=== PATIENT | female | born 1975 | race Caucasian/White ===

== ENCOUNTER 2019-11-15 15:59 | Emergency (ER) | payer OTHER, SELFPAY ==
[2019-11-15 16:06] VITALS: BP 121/74; PULSE 92; RESP 20; TEMP 36.8; O2SAT 100
--- NOTE | 2019-11-15 16:06 | ED.WOUNDLAC ---
HPI - Wound/Laceration General Chief Complaint: Wound/Laceration Stated Complaint: left thumb cut Time Seen by Provider: 11/15/19 16:06 Source: patient and RN notes reviewed History of Present Illness HPI narrative: Patient is a 43-year-old female that presents the urgent care with complaints of a laceration to the left thumb. Patient states it occurred about 12 PM this afternoon while she was grilling. Patient states that she fell off a small stool onto her buttocks and believes she cut her thumb on a light bulb . Patient states that her buttocks immediately bruised but she is feeling better now and is able to ambulate without difficulty. Patient has not done anything for her pain and finished all of her grilling prior to arrival . Patient is UTD on tetanus. No other acute complaints. No acute distress noted. Patient denies hitting her head or loss of consciousness. Patient read the plan of care. Related Data Home Medications Medication Instructions Recorded Confirmed atenolol 50 mg PO DAILY 11/15/19 11/15/19 atorvastatin 80 mg PO DAILY 11/15/19 11/15/19 citalopram 40 mg PO DAILY 11/15/19 11/15/19 metformin 500 mg PO DIRECTED 11/15/19 11/15/19 norethindrone-e.estradiol-iron 1 tablet PO DAILY 11/15/19 11/15/19 [Microgestin Fe 1.5/30 (28)] thyroid (pork) [[place] Thyroid] 120 mg PO DAILY 11/15/19 11/15/19 Allergies Allergy/AdvReac Type Severity Reaction Status Date / Time No Known Allergies Allergy Unverified 11/15/19 16:08 Review of Systems Review of Systems: Narrative: CONSTITUTIONAL: Denies fever, chills, or sweats. EYES: Denies visual changes, redness, or discharge. ENT: Denies rhinorrhea, congestion, sore throat, or otalgia. CARDIOVASCULAR: Denies chest pain, palpitations, or edema. RESPIRATORY: Denies cough or dyspnea. GASTROINTESTINAL: Denies abdominal pain, nausea, vomiting, or diarrhea. GENITOURINARY: Denies dysuria or hematuria. SKIN: Reports of a laceration to the left thumb. MUSCULOSKELETAL: Denies back pain, joint pain, or myalgia. NEUROLOGIC: Denies headache, numbness, or weakness. All other systems reviewed are negative, except as documented in HPI. PMFSH Comments At the time of my signature, I reviewed and agree with the nursing past medical, surgical, social, and family history. There is no relevant family history pertinent to the patient complaint. Exam Narrative: Exam Narrative: GENERAL: This is a well-nourished, well-developed patient, in no apparent distress. HEAD: normocephalic, atraumatic. EYES: PERRL. Sclera clear/white. Vision is grossly intact. EARS: External ears normal NOSE: External nose normal with no obvious nasal discharge, nares without redness, no rhinorrhea. THROAT: Mucous membranes moist NECK: Neck supple SKIN: 2.5 cm laceration noted to the tuft of the left thumb warm-bleeding controlled prior to arrival., intact with no suspicious lesions or rash, good texture and turgor. NEURO: awake, alert, and oriented to person, place and time. There were no obvious focal neurologic abnormalities. EXTREMITIES: No clubbing, cyanosis, or edema. Positive strong left radial pulse with capillary refill less than 2 seconds Course Vital Signs Vital signs: Vital Signs Temperature 98.3 F 11/15/19 16:06 Pulse Rate 92 11/15/19 16:06 Respiratory Rate 20 11/15/19 16:06 Blood Pressure 121/74 11/15/19 16:06 Pulse Oximetry 100 11/15/19 16:06 Temperature 98.3 F 11/15/19 16:06 Pulse Rate 92 11/15/19 16:06 Respiratory Rate 20 11/15/19 16:06 Blood Pressure 121/74 11/15/19 16:06 Pulse Oximetry 100 11/15/19 16:06 Reviewed Procedures Laceration Laceration 1: Site: hand (Left thumb) Side (If applicable): left Description: linear Pre-repair: irrigated ([employer] normal saline) ====== Skin Level ====== Skin layer closed with: dermabond and steri strips ====== Subcutaneous Layer ====== ====== Muscle Layer ======
== END 2019-11-15 17:20 | disposition home or self-care (01) ==
PROVIDERS: Emergency Provider Nurse Practitioner Family; PCP Nurse Practitioner Family
DX: S61.012A Laceration without foreign body of left thumb without damage to nail, initial encounter (principal); W17.89XA Other fall from one level to another, initial encounter; W25.XXXA Contact with sharp glass, initial encounter
CPT/HCPCS: 12001; 99212; G0463

== ENCOUNTER 2020-02-12 16:15 | Emergency (ER) | payer OTHER, SELFPAY ==
[2020-02-12 16:22] VITALS: BP 132/80; PULSE 74; RESP 16; TEMP 36.6; O2SAT 98
--- NOTE | 2020-02-12 16:37 | ED.EAR ---
HPI - Ear Problem General Chief complaint: Ear Stated complaint: ear infection Time Seen by Provider: 02/12/20 16:37 Source: patient Mode of arrival: ambulatory Limitations: no limitations History of Present Illness HPI Narrative: Allyson Guzman is a 44 yo female with a PMH of HTN who comes to express care with pain to left lower jaw and ear; rates pain as 10 out of 10, has been having this level pain, started 10 days ago. Has talked to her doctor who gave her Augmentin for 10 days with no improvement. Cleaned the ear with cotton ball yesterday and said there is some blood. Pain in L submandibular area Related Data Home Medications Medication Instructions Recorded Confirmed atenolol 50 mg PO DAILY 11/15/19 02/12/20 atorvastatin 80 mg PO DAILY 11/15/19 02/12/20 citalopram 40 mg PO DAILY 11/15/19 02/12/20 metformin 500 mg PO DIRECTED 11/15/19 02/12/20 norethindrone-e.estradiol-iron 1 tablet PO DAILY 11/15/19 02/12/20 [Microgestin Fe 1.5/30 (28)] thyroid (pork) [[place] Thyroid] 120 mg PO DAILY 11/15/19 02/12/20 Allergies Allergy/AdvReac Type Severity Reaction Status Date / Time No Known Allergies Allergy Verified 02/12/20 16:30 Review of Systems Review of Systems: Narrative: CONSTITUTIONAL: Denies fever, chills, sweats. EYES: Denies visual changes, redness, discharge. ENT: Denies rhinorrhea, congestion, sore throat, left otalgia. Left eustachian tube pain; CARDIOVASCULAR: Denies chest pain, palpitations, edema. RESPIRATORY: Denies dyspnea, wheezing, cough GASTROINTESTINAL: Denies abdominal pain, nausea, vomiting, diarrhea. GENITOURINARY: Denies dysuria, hematuria, abnormal discharge SKIN: Denies rash or itching. NEUROLOGIC: Denies numbness, or focal weakness. PSYCHIATRIC: Denies anxiety or depression. [facility] Past Medical History Medical History (Updated 02/12/20 @ 16:53 by Sasha Rowland CNP) Diabetes High cholesterol Hypertension Hypothyroid Family History Family History Other Hypertension Social History Social History Smoking status: Current some day smoker Alcohol intake: current Comments At time of signature, I agree with nursing past medical, surgical, social and family history. There is no relevant family history pertinent to the presenting complaint. Exam Narrative: Exam Narrative: GENERAL: This is a well-nourished, well-developed patient, in moderate distress. HEAD: normocephalic, atraumatic. EYES: Sclera clear/white. Vision is grossly intact. EARS: External ears normal, right auditory canal clear and without drainage, left canal is erythematous, and tender; TMs normal without perforation. Hearing grossly intact. NOSE: External nose normal without nasal discharge, nares without redness, no rhinorrhea. THROAT: Mucous membranes moist, posterior pharynx erythema-left submandibular tenderness with enlarged lymph node NECK: Neck supple, CARDIOVASCULAR: Regular rate and rhythm without murmurs, gallops, or rubs. RESPIRATORY: Clear to auscultation. Breath sounds equal bilaterally. No wheezes, rales, or rhonchi. GASTROINTESTINAL: Abdomen soft, non-tender, SKIN: warm, intact with no suspicious lesions or rash, good texture and turgor. NEURO: awake, alert, and oriented to person, place and time. There were no obvious focal neurologic abnormalities. Steady gait EXTREMITIES: Normal range of motion. BACK: Nontender without deformity Course Course Emergency Course: Started on eardrops, prednisone, clindamycin, Tylenol 3-must follow-up with dentist Vital Signs Vital signs: Vital Signs Temperature 97.9 F 02/12/20 16:22 Pulse Rate 74 02/12/20 16:22 Respiratory Rate 16 02/12/20 16:22 Blood Pressure 132/80 02/12/20 16:22 Pulse Oximetry 98 02/12/20 16:22 Temperature 97.9 F 02/12/20 16:22 Pulse Rate 74 02/12/20 16:22 Respiratory Rate 16 02/12/20 16:
[2020-02-12] MEDS: KETOROLAC (*BKC) 60 MG/2 ML VIAL IM (16:47)
== END 2020-02-12 17:07 | disposition home or self-care (01) ==
PROVIDERS: Emergency Provider Nurse Practitioner; PCP Nurse Practitioner Family
DX: K08.89 Other specified disorders of teeth and supporting structures (principal); H92.02 Otalgia, left ear; E11.9 Type 2 diabetes mellitus without complications; E78.00 Pure hypercholesterolemia, unspecified; I10 Essential (primary) hypertension; E03.9 Hypothyroidism, unspecified; F17.200 Nicotine dependence, unspecified, uncomplicated
CPT/HCPCS: 96372; 99213; G0463; J1885

== ENCOUNTER 2020-04-29 17:26 | Emergency (ER) | payer OTHER, SELFPAY ==
--- NOTE | ~2020-04-29 | XR_ITS ---
EXAMINATION: XR finger 5th LT min 2V DATE: 04/29/2020 17:51 INDICATION: Left hand fifth digit pain. Injury. TECHNIQUE: 4 views of left hand fifth digit were obtained. COMPARISON: None. FINDINGS: Bone alignment is normal. No fracture. There is mild osteoarthritis of fifth distal interph alangeal joint. IMPRESSION: 1. 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 Reviewed, dictated and finalized at location A. [employer]
--- NOTE | ~2020-04-29 | XR_ITS ---
EXAMINATION: XR forearm LT 2V DATE: 04/29/2020 17:52 INDICATION: Left forearm pain. TECHNIQUE: 2 views of left forearm were obtained. COMPARISON: None. FINDINGS: Bone alignment is normal. No fracture. Joint spaces are well maintained. There is no elbow joint effusion. IMPRESSION: 1. Normal left forearm. Reviewed, dictated and finalized at location A. [employer] IMPRESSION: 1. Normal left forearm.
[2020-04-29 17:31] VITALS: BP 142/90; PULSE 75; RESP 16; TEMP 36.6; O2SAT 100
--- NOTE | 2020-04-29 17:44 | ED.UPPEXIN ---
HPI - Extremity Injury (Upper) General Stated Complaint: Left elbow to pinky pain Time Seen by Provider: 04/29/20 17:44 Source: patient History of Present Illness HPI narrative: patient presents with left pinky and forearm pain. Patient was putting up [employer] lights and missed last step of ladder landing and catching her arm to break her fall. has pain to left pinky and forearm pain. no deformity no bruising no swelling Other Extremity Injury: Left: hand and forearm Other injuries: none Handedness: right Related Data Home Medications Medication Instructions Recorded Confirmed atenolol 50 mg PO DAILY 11/15/19 02/12/20 atorvastatin 80 mg PO DAILY 11/15/19 02/12/20 citalopram 40 mg PO DAILY 11/15/19 02/12/20 metformin 500 mg PO DIRECTED 11/15/19 02/12/20 norethindrone-e.estradiol-iron 1 tablet PO DAILY 11/15/19 02/12/20 [Microgestin Fe 1.5/30 (28)] thyroid (pork) [[place] Thyroid] 120 mg PO DAILY 11/15/19 02/12/20 Allergies Allergy/AdvReac Type Severity Reaction Status Date / Time No Known Allergies Allergy Verified 04/29/20 17:59 Review of Systems Review of Systems: Narrative: CONSTITUTIONAL: Denies fever, chills, or sweats. EYES: Denies visual changes, redness, or discharge. ENT: Denies rhinorrhea, congestion, sore throat, or otalgia. CARDIOVASCULAR: Denies chest pain, palpitations, or edema. RESPIRATORY: Denies cough or dyspnea. GASTROINTESTINAL: Denies abdominal pain, nausea, vomiting, or diarrhea. GENITOURINARY: Denies dysuria or hematuria. SKIN: Denies rash or itching. MUSCULOSKELETAL: Denies back pain, joint pain, or myalgia.left pinky pain and left forearm pain NEUROLOGIC: Denies headache, numbness, or weakness. PSYCHIATRIC: Denies anxiety or depression. [facility] Past Medical History Medical History (Updated 04/29/20 @ 17:53 by CLAIR Mustafa) Diabetes High cholesterol Hypertension Hypothyroid Family History Family History Other Hypertension Social History Social History Smoking status: Current some day smoker Alcohol intake: current Comments At time of signature, agree with nursing past medical, surgical, social and family history. There is no relevant family history pertinent to the presenting complaint Exam Narrative: Exam Narrative: GENERAL: Well-appearing, well-nourished, and in no acute distress. HEAD: Normocephalic, atraumatic. EYES: PERRLA and EOMI. ENT: Nares clear, no rhinorrhea or epistaxis. Mucous membranes moist. NECK: Supple. CHEST: Clear to auscultation. No respiratory distress. HEART: Regular rate and rhythm. No murmur heard. Normal peripheral pulses. ABDOMEN: Soft, nontender, nondistended, normal active bowel sounds. EXTREMITIES: Normal range of motion. No edema. HAND EXAM - Skin intact, no laceration, no swelling, no erythema, normal digit cascade with flexion of fingers, median nerve, ulnar nerve, radial nerve is intact. Normal sensation of each side of each finger, can perform `ok? sign, `cross over finger test of index and middle fingers? and `thumbs up? sign, normal thumb opposition, no scissoring. good capillary refill and radial pulse. normal flexion and extension of fingers and wrist. normal supination at wrist. Normal forearm and elbow exam. SKIN: Warm, dry, no rash. NEURO: No focal deficits. Alert and oriented x3. Pamela Coma Scale Eye Opening: Spontaneous 4 [place] Coma Scale Motor: Obeys Commands 6 [place] Coma Scale Verbal: Oriented 5 [place] Coma Scale Total 15 Course Vital Signs Vital signs: Vital Signs Temperature 36.6 C 04/29/20 17:31 Pulse Rate 75 04/29/20 17:31 Respiratory Rate 16 04/29/20 17:31 Blood Pressure 142/90 H 04/29/20 17:31 Pulse Oximetry 100 04/29/20 17:31 Temperature 36.6 C 04/29/20 17:31 Pulse Rate 75 04/29/20 17:31 Respiratory Rate 16 04/29/20 17:31 Blood Pressure 142/90 H 1
== END 2020-04-29 18:05 | disposition home or self-care (01) ==
PROVIDERS: Emergency Provider Nurse Practitioner Family; PCP Nurse Practitioner Family
DX: S50.12XA Contusion of left forearm, initial encounter (principal); W11.XXXA Fall on and from ladder, initial encounter; S60.052A Contusion of left little finger without damage to nail, initial encounter; F17.200 Nicotine dependence, unspecified, uncomplicated; E11.9 Type 2 diabetes mellitus without complications; E78.00 Pure hypercholesterolemia, unspecified; I10 Essential (primary) hypertension; E03.9 Hypothyroidism, unspecified
CPT/HCPCS: 73090; 73140; 99213; G0463